=== PATIENT | male | born 1950 | race Caucasian/White ===

== ENCOUNTER 2023-06-16 10:35 | Day surgery (SDC) | payer OTHER ==
[2023-06-05 14:38] LABS: Absolute Eosinophils 0.2 K/uL (0-0.5); Absolute Lymphocytes (CBC) 0.7 K/uL (0.7-4.9); Absolute Monocytes 0.6 K/uL (0.1-1.3); Absolute Neutrophil 4.9 K/uL (1.8-8.0); Basophils % 0.8 % (0-1.3); Eosinophils % 2.6 % (0-4.4); Hematocrit 43.8 % (39.6-49.0); Hemoglobin 14.5 g/dL (13.6-17.9); Lymphocytes % 11.1 % (15.3-44.8); MCH 32.4 pg (27.0-35.0); MCHC 33.1 g/dL (32.0-36.0); MCV 97.9 fL (80-100); MPV 8.2 fL (7.6-11.3); Monocytes % 9.3 % (3.3-12.3); Neutrophils % 76.2 % (41.7-73.7); Platelets 174 thou/uL (152-406); RBC Red Blood Cell Count 4.47 M/uL (4.33-5.43); Red Cell Distribution Width 14.1 % (12.1-15.2)
[2023-06-05 14:42] LABS: PT Prothrombin Time 10.3 SECONDS (9.5-12.5); PTT, Activated Partial Thromb 33.9 SECONDS (24.3-36.9); Protime INR 0.93
[2023-06-05 14:55] LABS: Anion Gap 8.2 mEq/L (5.0-15.0); Potassium 4.2 mEq/L (3.5-5.1)
--- NOTE | 2023-06-09 13:10 | EKG ---
Test Date: 2023-06-05 Test Time: 14:26:50 Offset Pressman: JARETT MEASUREMENT RESULTS: Intervals: Rate: 64 IN: 220 QRSD: 100 QT: 408 QTc: 420 [place]: P: 68 IN: 220 QRS: -44 T: 64 INTERPRETIVE STATEMENTS: Sinus rhythm with 1st degree AV block Left axis deviation Abnormal ECG No previous ECG available for comparison Electronically Signed On 06-09-23 12:59:23 CDT by Gerardo Carpenter
[2023-06-16] MEDS ORDERED: propofoL 200 MG/20 ML VIAL IV ONE (11:35)
[2023-06-16] MEDS ORDERED: LIDOCAINE 1% MPF 5 ML VIAL ONE (11:35)
[2023-06-16] MEDS: Ringers Lactate 1,000 ML IV ONE (11:39)
[2023-06-16 12:36] VITALS: O2SAT 100
[2023-06-16 13:37] VITALS: BP 126/74; TEMP 97
== END 2023-06-16 12:54 | disposition home or self-care (01) ==
LOC: OR 10:35
PROVIDERS: ATTEND Surgery
PROC: 0DBN8ZX Excision of Sigmoid Colon, Via Natural or Artificial Opening Endoscopic, Diagnostic (ICD-10-PCS; 2023-06-16)
PROC: 0DBP8ZX Excision of Rectum, Via Natural or Artificial Opening Endoscopic, Diagnostic (ICD-10-PCS; principal; 2023-06-16 12:00)
DX: Z12.11 Encounter for screening for malignant neoplasm of colon (principal); K64.8 Other hemorrhoids; K63.5 Polyp of colon; I10 Essential (primary) hypertension; E78.00 Pure hypercholesterolemia, unspecified
CPT/HCPCS: 93005; 85025; 80048; 36415; 85610; 88305; 85730; 45380; J2704; J2001; J7120